=== PATIENT | male | born 1995 | race African-American/Black ===

== ENCOUNTER 2017-05-11 17:50 | Emergency (ER) | payer OTHER ==
[~2017-05-11] VITALS: Ht 172.7 cm; Wt 71.1 kg
[2017-05-11 17:54] VITALS: BP 148/97
[2017-05-11] MEDS ORDERED: FAMOTIDINE 20 MG TABLET ONE (18:23)
[2017-05-11] MEDS ORDERED: FAMOTIDINE 20 MG TABLET PO ONE (18:30)
== END 2017-05-11 18:46 | disposition home or self-care (01) ==
LOC: ED 18:40
DX: L50.9 Urticaria, unspecified (principal); T78.49XA Other allergy, initial encounter; X58.XXXA Exposure to other specified factors, initial encounter
CPT/HCPCS: 99283; J7512